=== PATIENT | female | born 1990 | race Asian ===

== ENCOUNTER 2019-08-16 14:42 | Emergency (ER) | payer OTHER ==
[2019-08-16 14:50] VITALS: BP 113/72
--- NOTE | 2019-08-16 14:53 | UC ---
Abdominal Pain Female HPI - HPI Summary HPI Summary: 28-year-old female presenting with lower abdominal pain that began this morning around 0830. Patient describes the pain as sharp and "feels like there is a balloon in her whole stomach." Patient states the pain radiates to her anus and "it feels like there are needles in my anus." States standing up and walking makes the pain worse and sitting and lying down somewhat lessen the pain. She notes nausea at the time of symptom onset but none since. Denies vomiting. States she had a normal solid bowel movement without blood in the stool this morning before her pain started. Denies any urinary symptoms. Denies abnormal discharge. Last menstrual period was 07/30/2019. Denies fever, chills, and body aches. Patient denies concern for STDs and states she uses condoms with her as control. Denies PMH. Denies h/o ovarian cysts and GI disorders. Denies PSH. Denies anything like this in the past. - History of Current Complaint Chief Complaint: UCAbdominalPain Stated Complaint: ABD PAIN Hx Obtained From: Patient Hx Last Menstrual Period: 07/30/19 Pain Intensity: 7 Pain Scale Used: 0-10 Numeric Allergies/Adverse Reactions: Allergies Allergy/AdvReac Type Severity Reaction Status Date / Time No Known Allergies Allergy Verified 08/16/19 14:50 Home Medications: Home Medications Kennedy 3 1,000 mg Softgel 1 cap PO DAILY 08/16/19 [History Confirmed 08/16/19] PMH/Surg Hx/FS Hx/Imm Hx Previously Healthy: Yes - Surgical History Surgical History: None - Family History Known Family History: Positive: Hypertension - Social History Alcohol Use: None Substance Use Type: None Smoking Status (MU): Never Smoked Tobacco Review of Systems All Other Systems Reviewed And Are Negative: Yes Constitutional: Positive: Negative Respiratory: Positive: Negative Cardiovascular: Positive: Negative Gastrointestinal: Positive: Abdominal Pain - lower abd, Nausea - at symptom onset. Negative: Vomiting, Diarrhea Genitourinary: Positive: Negative Musculoskeletal: Positive: Negative Neurological/Mental Status: Positive: Negative Physical Exam - Summary Physical Exam Summary: Vital Signs Reviewed: Yes A+Ox3, pain distress Eyes: Conjunctiva Clear ENT: Hearing grossly normal Neck: Positive: Supple Respiratory: Positive: No respiratory distress, No accessory muscle use + CTA throughout no w/r Cardiovascular: RRR nl s1, s2 no m/r Abd: soft +BS, hyperactive LLQ, +TTP LLQ/RLQ, no distention, no guarding Musculoskeletal Exam: IVAN x 4 without difficulty Neurological: Positive: Alert Psychological: Positive: age appropriate behavior Skin: Positive: no rash, no ecchymosis Vital Signs: Initial Vital Signs Temp 98.2 F 08/16/19 14:47 Pulse 83 08/16/19 14:47 Resp 18 08/16/19 14:47 BP 113/72 08/16/19 14:47 Pulse Ox 100 08/16/19 14:47 Abd Pain Female Course/Dx - Course Course Of Treatment: Patient unable to give urine sample here. Discussed with patient that it is recommended she go to the emergency room for further evaluation of abdominal pain based on history and PE findings. Patient voiced understanding and agreed to go to ED. Patient declined transfer via ambulance and stated that her will take her to the ED upon departure from the urgent care. - Differential Dx/Diagnosis Differential Diagnosis: Appendicitis, Diverticulitis, Ectopic , Ovarian Cyst, Pelvic Inflammatory Disease, , Renal Colic, Urinary Tract Infection Provider Diagnosis: Bilateral lower abdominal pain Discharge ED - Sign-Out/Discharge Documenting (check all that apply): Patient Departure All imaging exams completed and their final reports reviewed: No Studies - Discharge Plan Condition: Stable Disposition: HOME-RECOMMEND TO ED Patient Education Materials: Acute Abdominal Pain (ED) Referrals: No Primary Care Phys,NOPCP [Primary Care Provider] - Additional Instructions: The provider that evaluated you today thinks that you need additional testing that can be completed in the emergency department. It is recommended that you go directly to the emergency department for further evaluation. This evaluation may include blood work or imaging. This testing will be directed and decided by the provider that evaluates you at the emergency department. If pain becomes worse, you feel lightheaded, you have uncontrolled vomiting, or you have any other concerns while you are being driven to the emergency department as recommended to washing machine loader and puller and contact 911. - Billing Disposition and Condition Condition: STABLE Disposition: Home-Recommend to ED
== END 2019-08-16 15:24 | disposition home health service (06) ==
LOC: UCEAST 14:42
DX: R10.31 Right lower quadrant pain (principal); R10.32 Left lower quadrant pain
CPT/HCPCS: 99201; G0463

== ENCOUNTER 2019-08-16 15:42 | Day surgery (SDC) | payer OTHER ==
[2019-08-16 19:07] LABS: ABS Lymphocytes 1.2 10^3/ul (1.0-4.8); ABS Monocytes 0.3 10^3/ul (0-0.8); Hematocrit 42 % (35-47); Hemoglobin 14.5 g/dL (12.0-16.0); Lymphocyte % 11.4 %; Mean Corpuscular HGB Conc 34 g/dL (31-36); Mean Corpuscular Hemoglobin 31 pg (27-31); Mean Corpuscular Volume 91 fL (80-97); Mean Platelet Volume 8.7 fL (7.4-10.4); Platelet Count 197 10^3/uL (150-450); Red Blood Count 4.68 10^6 /uL (3.70-4.87); Red Cell Distribution Width 15 % (10-15); White Blood Count 10.1 10^3/uL (3.5-10.8)
[2019-08-16 19:15] LABS: Urine Appearance Cloudy; Urine Bilirubin Negative (Negative); Urine Blood Negative (Negative); Urine Color Yellow; Urine Glucose Negative (Negative); Urine Ketones 2+ (Negative); Urine Nitrite Negative (Negative); Urine Protein Negative (Negative); Urine Specific Gravity 1.021 (1.010-1.030); Urine Urobilinogen Negative (Negative)
[2019-08-16 19:21] LABS: ALT 20 U/L (7-52); Albumin 4.9 g/dL (3.2-5.2); Albumin/Globulin Ratio 1.6 (1-3); Alkaline Phosphatase 67 U/L (34-104); BUN/Creatinine Ratio 33.3 (8-20); Blood Urea Nitrogen 21 mg/dL (6-24); C Reactive Protein < 1.00 mg/L (<8.01); CO2 Carbon Dioxide 20 mmol/L (22-32); Calcium 9.4 mg/dL (8.6-10.3); Chloride 100 mmol/L (101-111); EGFR African American 137.2 (>60); EGFR Non-African American 113.4 (>60); Globulin 3.1 g/dL (2-4); Glucose 78 mg/dL (70-100); Sodium 132 mmol/L (135-145)
[2019-08-16 19:31] LABS: Anion Gap 12 mmol/L (2-11)
[2019-08-16] MEDS ORDERED: Morphine 4 MG/ML VIAL (1 ml) IV ONE (20:14)
[2019-08-16] MEDS ORDERED: Ondansetron 4 mg VIAL 2 MG/ML 2 ml VIAL IV ONE (20:14)
[2019-08-16] MEDS ORDERED: Iohexol 300 (CONTRAST) 10 ML SDV IV ONE (20:20)
[2019-08-16] MEDS ORDERED: NS 0.9% 1000 ml BAG 1,000 ML IV ONE (21:09)
[2019-08-16 22:48] LABS: Potassium Redraw 4.2 mmol/L (3.5-5.0)
[2019-08-16] MEDS ORDERED: Bupivacaine 0.5% 50 ML MDV VIAL ONE (23:27)
[2019-08-16] MEDS ORDERED: ceFOXitin 2 GM IVPREMIX (*) 2 GM/50 ML BAG ONE (23:37)
[2019-08-16] MEDS ORDERED: Ondansetron 4 mg VIAL 2 MG/ML 2 ml VIAL ONE (23:53)
[2019-08-16] MEDS ORDERED: Lidocaine 2% PF 5 ML VIAL ONE (23:53)
[2019-08-16] MEDS ORDERED: Propofol 10 MG/ML 20 ML BTL ONE (23:53)
[2019-08-16] MEDS ORDERED: Midazolam 2 mg/2 ml VIAL 1 mg/ml 2 ml VIAL (2 mg) ONE (23:53)
[2019-08-16] MEDS ORDERED: Dexamethasone IV 4 MG/ML VIAL 1 ml VIAL ONE (23:53)
[2019-08-16] MEDS ORDERED: fentaNYL 100 mcg/2 ml 50 MCG/ML VIAL ONE (23:54)
[2019-08-16] MEDS ORDERED: Rocuronium 50 mg VIAL 10 mg/ml 5 ml VIAL (50 mg) ONE (23:56)
[2019-08-17] MEDS ORDERED: fentaNYL 100 mcg/2 ml 50 MCG/ML VIAL IV PRN (00:26)
[2019-08-17] MEDS ORDERED: diPHENhydraMINE IV 50 MG/ML 1 ml VIAL (BENADRYL) IV PRN (00:26)
[2019-08-17] MEDS ORDERED: Ondansetron 4 mg VIAL 2 MG/ML 2 ml VIAL IV PRN (00:26)
[2019-08-17] MEDS ORDERED: DiMENhydriNATE IV 50 mg/ml 1 ml VIAL IV PUSH PRN (00:26)
[2019-08-17] MEDS ORDERED: Naloxone 0.4 mg VIAL 0.4 mg/ml 1 ml VIAL IV PRN (00:26)
[2019-08-17] MEDS ORDERED: fentaNYL 100 mcg/2 ml 50 MCG/ML VIAL ONE (00:49)
[2019-08-17] MEDS ORDERED: Lactated Ringers 1000 ml BAG 1,000 ML IV SCH (01:00)
[2019-08-17] MEDS ORDERED: ACETAMINOPHEN 1 GM/100 ML IVPB SCH (02:30)
[2019-08-17 03:12] VITALS: BP 110/69
[2019-08-20] MEDS ORDERED: Scopolamine PATCH Remove NOTE PATCH OFF ONE (00:28)
== END 2019-08-17 03:20 | disposition home or self-care (01) ==
LOC: ED 15:42 → OR 22:53 → ED 23:34 → OR 08-17 03:20
PROVIDERS: ATTEND Obstetrics & Gynecology